=== PATIENT | male | born 1980 | race American Indian/Alaskan Native ===

== ENCOUNTER 2018-11-11 20:15 | Emergency (ER) | payer BC ==
[2018-11-11] MEDS ORDERED: PEPCID IV ONE (20:24)
[2018-11-11] MEDS ORDERED: SOLU-Medrol IV ONE (20:24)
[2018-11-11] MEDS ORDERED: BENADRYL IV ONE (20:24)
--- NOTE | 2018-11-11 20:24 | Emergency Department Report ---
Chief Complaint: Allergic Reaction Stated Complaint: ALLERGIC REACTION Time Seen by Provider: 11/11/18 20:23 - Exam Vital Signs: Vital Signs 11/11/18 20:19 Temperature 98.7 F Pulse Rate 80 Respiratory 16 Rate Blood Pressure 130/100 O2 Sat by Pulse 98 Oximetry MSE screening note: Focused history and physical exam performed. Due to findings the following was ordered: ED Disposition for MSE Condition: Stable
[2018-11-11] MEDS ORDERED: NACL 0.9% 1000 ML 1,000 ML IV ONE (20:25)
--- NOTE | 2018-11-11 20:36 | Emergency Department Report ---
ED Allergic Reaction HPI - General Chief complaint: Allergic Reaction Stated complaint: ALLERGIC REACTION Time Seen by Provider: 11/11/18 20:23 Source: patient Mode of arrival: Ambulatory Limitations: No Limitations - History of Present Illness Initial Comments: comes to er co face swelling after eating crab legs no previous reaction to fish in past no wheezing vss abc intact MD Complaint: allergic reaction, facial swelling -: Sudden Exposure: food Treatment Prior to Arrival: none - Related Data Previous Rx's Medication Instructions Recorded Last Taken Type EPINEPHrine [Epipen] 0.3 mg IJ ONCE PRN #1 auto.injct 11/11/18 Unknown Rx Famotidine [Pepcid] 20 mg PO DAILY #5 tablet 11/11/18 Unknown Rx diphenhydrAMINE [Benadryl CAP] 25 mg PO Q8HR PRN #20 capsule 11/11/18 Unknown Rx predniSONE [Deltasone] 20 mg PO DAILY #5 tablet 11/11/18 Unknown Rx Allergies Allergy/AdvReac Type Severity Reaction Status Date / Time acetaminophen [From Percocet] Allergy Unknown Verified 11/11/18 20:25 codeine Allergy Unknown Verified 11/11/18 20:25 gemifloxacin [From Factive] Allergy Unknown Verified 11/11/18 20:25 oxycodone [From Percocet] Allergy Unknown Verified 11/11/18 20:25 seafood Allergy Unknown Uncoded 11/11/18 20:25 ED Review of Systems ROS: Stated complaint: ALLERGIC REACTION Other details as noted in HPI Comment: All other systems reviewed and negative ED Past Medical Hx - Past Medical History Previous Medical History?: Yes Hx Psychiatric Treatment: Yes (PTSD) Additional medical history: chronic back pain - Surgical History Past Surgical History?: Yes Additional Surgical History: right arm plates and screws. right leg rods - Family History Family history: no significant - Social History Smoking Status: Never Smoker Substance Use Type: None - Medications Home Medications: Home Medications Medication Instructions Recorded Confirmed Last Taken Type EPINEPHrine [Epipen] 0.3 mg IJ ONCE PRN #1 auto.injct 11/11/18 Unknown Rx Famotidine [Pepcid] 20 mg PO DAILY #5 tablet 11/11/18 Unknown Rx diphenhydrAMINE [Benadryl CAP] 25 mg PO Q8HR PRN #20 capsule 11/11/18 Unknown Rx predniSONE [Deltasone] 20 mg PO DAILY #5 tablet 11/11/18 Unknown Rx ED Physical Exam - General Limitations: No Limitations General appearance: alert, in no apparent distress - Head Head exam: Present: atraumatic, normocephalic - Eye Eye exam: Present: normal appearance, PERRL, EOMI - ENT ENT exam: Present: mucous membranes moist - Neck Neck exam: Present: normal inspection - Respiratory Respiratory exam: Present: normal lung sounds bilaterally - Cardiovascular Cardiovascular Exam: Present: regular rate - GI/Abdominal GI/Abdominal exam: Present: soft, normal bowel sounds - Rectal Rectal exam: Present: deferred - Extremities Exam Extremities exam: Present: normal inspection, full ROM - Back Exam Back exam: Present: normal inspection - Neurological Exam Neurological exam: Present: alert, oriented X3, CN II-XII intact, normal gait - Psychiatric Psychiatric exam: Present: normal affect, normal mood - Skin Skin exam: Present: warm, dry, intact. Absent: rash ED Course Vital Signs 11/11/18 20:19 Temperature 98.7 F Pulse Rate 80 Respiratory 16 Rate Blood Pressure 130/100 O2 Sat by Pulse 98 Oximetry ED Medical Decision Making - Medical Decision Making allergic reaction to crab legs medicated IV in ACC and monitored abc intact no wheezing taking po no rash improved with meds dc home with dc education on allergies bp 130/80 per provider on exam no hx hypertension no cp no sob Vital Signs 11/11/18 20:19 Temperature 98.7 F Pulse Rate 80 Respiratory 16 Rate Blood Pressure 130/100 O2 Sat by Pulse 98 Oximetry Critical care attestation.: If time is entered above; I have spent that time in minutes in the direct care of this critically ill patient, excluding procedure time. ED Disposition Clinical Impression: Allergic reaction Disposition: DC-01 TO HOME OR SELFCARE Is pt being admited?: No Does the pt Need Aspirin: No Condition: Stable Instructions: Food Allergy (ED), Anaphylaxis (ED) Additional Instructions: AVOID SEAFOOD ALWAYS REPORT SEAFOOD AN ALLERGY MEDS ORDERED TONIGHT EPI INSTRUCTED FOLLOW UP PCP REFERRAL BELOW Prescriptions: diphenhydrAMINE [Benadryl CAP] 25 mg PO Q8HR PRN #20 capsule PRN Reason: Itching predniSONE [Deltasone] 20 mg PO DAILY #5 tablet EPINEPHrine [Epipen] 0.3 mg IJ ONCE PRN #1 auto.injct PRN Reason: Anaphylaxis Famotidine [Pepcid] 20 mg PO DAILY #5 tablet Referrals: BETSY RUELAS [Primary Care Provider] - 3-5 Days Time of Disposition: 20:59
[2018-11-12 05:41] VITALS: BP 124/74
== END 2018-11-11 21:15 | disposition home or self-care (01) ==
LOC: ED 20:15
DX: T78.40XA Allergy, unspecified, initial encounter (principal); Y92.89 Other specified places as the place of occurrence of the external cause
CPT/HCPCS: 96374; 96375; 99282; J1200; J2930; J7030

== ENCOUNTER 2020-10-19 19:25 | Emergency (ER) | payer BC | END 2020-10-19 20:20 | disposition left against medical advice (07) | LOC: ED 19:25 | DX: T78.40XA Allergy, unspecified, initial encounter (principal); Z53.21 Procedure and treatment not carried out due to patient leaving prior to being seen by health care provider; X58.XXXA Exposure to other specified factors, initial encounter ==